=== PATIENT | male | born 1990 | race Caucasian/White ===

== ENCOUNTER → 2017-02-08 08:20 | Emergency (ER) | payer SELFPAY ==
[~2017-02-08 08:20] MED LIST: NS 0.9% 1000 ML* 1,000 ML IV ONE; NS 0.9% 1000 ML* 2,000 ML IV ONE; Ondansetron INJ* 2 MG/ML VIAL IV ONE; Pantoprazole IV* 40 MG IV ONE
[2017-02-08 08:25] VITALS: BP 188/107
[2017-02-08 11:05] LABS: Hematocrit 50 % (42-52); Mean Corpuscular HGB Conc 34 g/dl (31-36); Mean Corpuscular Hemoglobin 31 pg (27-31); Mean Corpuscular Volume 91 fL (80-94); Mean Platelet Volume 9 um3 (7.4-10.4); Red Blood Count 5.52 10^6/ul (4.0-5.4); Red Cell Distribution Width 13 % (10.5-15)
[2017-02-08 11:35] LABS: ALT 21 U/L (7-52); AST 23 U/L (13-39); Albumin 4.7 g/dL (3.2-5.2); Alkaline Phosphatase 60 U/L (34-104); Anion Gap 12 mmol/L (2-11); Blood Urea Nitrogen 15 mg/dL (6-24); C Reactive Protein < 1.00 mg/L (< 5.00); CO2 Carbon Dioxide 25 mmol/L (22-32); Calcium 9.6 mg/dL (8.6-10.3); Chloride 99 mmol/L (101-111); EGFR African American 116.2 (>60); EGFR Non-African American 90.3 (>60); Glucose 119 mg/dL (70-100); Lipase 32 U/L (11.0-82.0); Potassium 3.8 mmol/L (3.5-5.0); Sodium 136 mmol/L (133-145); Total Protein 7.7 g/dL (6.4-8.9)
--- NOTE | 2017-02-08 15:46 | ED ---
Piper Gee Edward, scribed for Frank Marshall MD on 02/08/17 at 1042 . Abdominal Pain/Male - HPI Summary HPI Summary: 26 y/o male presents to ED c/o ABD discomfort for a few days. Patient has been vomiting for the past couple of days. There was a little blood in the vomit, loss of appetite due to ABD pain, a little blood in the stool, diarrhea, lightheadedness, dizziness, HODGE, fever and chills (last night). Patient states he feels dehydrated. Denies CP and SOB. No PMHx ulcers, gallbladder disease. No FHx ulcers and Crohn's disease. Patient was recently in [facility] and got out a few weeks ago, but there was no ABD discomfort in [facility]. Patient states recent stress in life. EtOH use. Smoker. No drug use. NKDA. - History of Current Complaint Chief Complaint: EDAbdPain Stated Complaint: VOMITING BLOOD Time Seen by Provider: 02/08/17 10:18 Hx Obtained From: Patient Onset/Duration: Lasting Days Timing: Constant Severity Initially: Moderate Severity Currently: Moderate Pain Intensity: 7 Pain Scale Used: 0-10 Numeric Associated Signs And Symptoms: Positive: Diaphoresis, Fever, Blood in Stool, Decreased Appetite, Nausea, Vomiting - Blood in vomit, Diarrhea, Other - Lightheaded, dizzy, chills. Negative: Chest Pain - Allergies/Home Medications Allergies/Adverse Reactions: Allergies Allergy/AdvReac Type Severity Reaction Status Date / Time No Known Allergies Allergy Verified 02/24/16 14:00 PMH/Surg Hx/FS Hx/Imm Hx Previously Healthy: No Endocrine/Hematology History: Denies: Hx Diabetes, Hx Thyroid Disease Cardiovascular History: Denies: Hx Hypertension Respiratory History: Reports: Hx Asthma - as a child Denies: Hx Chronic Obstructive Pulmonary Disease (COPD) GI History: Denies: Hx Gall Bladder Disease, Hx Ulcer Infectious Disease History: No Infectious Disease History: Denies: Hx Clostridium Difficile, Hx Hepatitis, Hx Human Immunodeficiency Virus (HIV), Hx of Known/Suspected MRSA, Hx Shingles, Hx Tuberculosis, Hx Known/ Suspected VRE, Hx Known/Suspected VRSA, History Other Infectious Disease, Traveled Outside the [place] in Last 30 Days - Family History Known Family History: Positive: Other - No history of ulcers, gall bladder disease or Crohn's disease - Social History Alcohol Use: None Alcohol Amount: 6 pack a day and 6 shots a day Substance Use Type: Reports: None Smoking Status (MU): Heavy Every Day Tobacco Smoker Type: Cigarettes Amount Used/How Often: 1 PPD Length of Time of Smoking/Using Tobacco: 7-8 years. Review of Systems Positive: Fever, Chills, Skin Diaphoresis Eyes: Negative ENT: Negative Cardiovascular: Negative Negative: Chest Pain Respiratory: Negative Negative: Shortness Of Breath Positive: Vomiting - Blood in vomit, Diarrhea - Blood in stool, Nausea Genitourinary: Negative Musculoskeletal: Negative Skin: Negative Neurological: Other - Lightheaded and dizzy Psychological: Normal All Other Systems Reviewed And Are Negative: Yes Physical Exam - Summary Physical Exam Summary: The patient is well-nourished in no acute distress and in no acute pain. The skin is warm and skin color reflects adequate perfusion. The patient is diaphoretic. HEENT: The head is normocephalic and atraumatic. The pupils are equal and reactive. The conjunctivae are clear and without drainage. Nares are patent and without drainage. Mouth reveals moist mucous membranes and the throat is without erythema and exudate. The external ears are intact. The ear canals are patent and without drainage. The tympanic membranes are intact. Neck is supple with full range of motion and non-tender. There are no carotid bruits. There is no neck vein distension. Respiratory: Chest is non-tender. Lungs are clear to auscultation and breath sounds are symmetrical and equal. Cardiovascular: Hear is regular rate and rhythm. There is no murmur or rub auscultated. There is no peripheral edema and pulses are symmetrical and equal. Abdomen: The abdomen is soft and non-tender. There is no pain in the epigastric region, RUQ, and RLQ. There are normal bowel sounds heard in all four quadrants and there is no organomegaly palpated. Musculoskeletal: There is no back pain noted. Extremities are non-tender with full range of motion. There is good capillary refill. There is no peripheral edema or calf tenderness elicited. Neurological: Patient is alert and oriented to person, place and time. The patient has symmetrical motor strength in all four extremities. Cranial nerves are grossly intact. Deep tendon reflexes are symmetrical and equal in all four extremities. Psychiatric: The patient has an appropriate affect and does not exhibit any anxiety or depression. Triage Information Reviewed: Yes Vital Signs On Initial Exam: Initial Vitals Temp Pulse Resp BP Pulse Ox 98.1 F 109 20 188/107 98 02/08/17 08:22 02/08/17 08:22 02/08/17 08:22 02/08/17 08:22 02/08/17 08:22 Vital Signs Reviewed: Yes - [place] Coma Scale Coma Scale Total: 15 Diagnostics - Vital Signs Vital Signs Temp Pulse Resp BP Pulse Ox 02/08/17 08:24 98.1 F 106 20 188/107 99 02/08/17 08:22 98.1 F 109 20 188/107 98 - Laboratory Lab Results: Lab Results 02/08/17 02/08/17 02/08/17 Range/Units 10:50 10:50 10:50 WBC 11.0 H (3.5-10.8) 10^3/ul RBC 5.52 H (4.0-5.4) 10^6/ul Hgb 17.0 (14.0-18.0) g/dl Hct 50 (42-52) % MCV 91 (80-94) fL MCH 31 (27-31) pg MCHC 34 (31-36) g/dl RDW 13 (10.5-15) % Plt Count 180 (150-450) 10^3/ul MPV 9 (7.4-10.4) um3 Neut % (Auto) 72.3 (38-83) % Lymph % (Auto) 19.4 L (25-47) % Divide % (Auto) 6.8 (1-9) % Eos % (Auto) 0.5 (0-6) % Baso % (Auto) 1.0 (0-2) % Absolute Neuts (auto) 7.9 H (1.5-7.7) 10^3/ul Absolute Lymphs (auto) 2.1 (1.0-4.8) 10^3/ul Absolute Monos (auto) 0.8 (0-0.8) 10^3/ul Absolute Eos (auto) 0.1 (0-0.6) 10^3/ul Absolute Basos (auto) 0.1 (0-0.2) 10^3/ul Absolute Nucleated RBC 0.03 10^3/ul Nucleated RBC % 0.3 Sodium 136 (133-145) mmol/L Potassium 3.8 (3.5-5.0) mmol/L Chloride 99 L (101-111) mmol/L Carbon Dioxide 25 (22-32) mmol/L Anion Gap 12 H (2-11) mmol/L BUN 15 (6-24) mg/dL Creatinine 1.00 (0.67-1.17) mg/dL Est GFR ( Amer) 116.2 (>60) Est GFR (Non-Af Amer) 90.3 (>60) BUN/Creatinine Ratio 15.0 (8-20) Glucose 119 H (70-100) mg/dL Lactic Acid 1.5 (0.5-2.0) mmol/L Calcium 9.6 (8.6-10.3) mg/dL Total Bilirubin 1.90 H (0.2-1.0) mg/dL AST 23 (13-39) U/L ALT 21 (7-52) U/L Alkaline Phosphatase 60 (34-104) U/L C-Reactive Protein < 1.00 (< 5.00) mg/L Total Protein 7.7 (6.4-8.9) g/dL Albumin 4.7 (3.2-5.2) g/dL Globulin 3.0 (2-4) g/dL Albumin/Globulin Ratio 1.6 (1-3) Lipase 32 (11.0-82.0) U/L Result Diagrams: 02/08/17 10:50 02/08/17 10:50 Lab Statement: Any lab studies that have been ordered have been reviewed, and results considered in the medical decision making process. Re-Evaluation - Re-Evaluation 13:25 Re-Evaluation Time: 13:25 Change: Improved - Reviewed labs with patient. Patient is now tolerating liquids , with no more vomiting Abdominal Pain Fem Course/Dx - Course Assessment/Plan: 26 y/o male presents to ED c/o ABD discomfort for a few days. Patient has been vomiting for the past couple of days. On reeval @ 13:25, patient feels better - is tolerating liquids and has no more vomiting. I also reviewed labs with the patient on reeval. Patient will be discharged with Dehydration and Gastritis with f/u with PCP in 2-3 days. Patient will be given Prilosec and Zofran. Pt is agreeable with this plan. - Diagnoses Differential Diagnosis/HQI/PQRI: Bowel Obstruction, Pancreatitis, Peptic Ulcer Disease, Other - gastritis, dehydration Provider Diagnoses: Dehydration, Gastritis Discharge - Discharge Plan Condition: Stable Disposition: HOME Prescriptions: Omeprazole CAP* [Prilosec CAP* 20 MG] 20 mg PO DAILY #30 cap.dr Ondansetron ODT TAB* [Zofran 4 MG Odt TAB*] 4 mg PO Q8H PRN #10 tab.odt PRN Reason: nausea Patient Education Materials: Dehydration (ED), Gastritis (ED) Referrals: Jan CHAND,Gerber Arias [Primary Care Provider] - 3 Days (F/U in 2-3 days) The documentation as recorded by the Piper finn Edward accurately reflects the service I personally performed and the decisions made by , Frank Marshall MD.
== END | disposition home or self-care (01) ==
LOC: ED 08:20
DX: R50.9 Fever, unspecified (principal); R11.2 Nausea with vomiting, unspecified; R19.7 Diarrhea, unspecified; R42 Dizziness and giddiness; F17.210 Nicotine dependence, cigarettes, uncomplicated
CPT/HCPCS: 36415; 80053; 83605; 83690; 85025; 86140; 96374; 96375; 99283; J2405

== ENCOUNTER 2017-09-17 03:57 | Emergency (ER) | payer MEDICAID ==
[2017-09-17] MEDS ORDERED: cloNIDine TAB* 0.1 MG PO ONE (04:25)
[2017-09-17] MEDS ORDERED: ALPRAZolam TAB* 0.5 MG PO ONE (04:26)
[2017-09-17] MEDS ORDERED: cloNIDine TAB* 0.1 MG ONE ×2 (04:34)
--- NOTE | 2017-09-17 05:34 | ED ---
Jessee Gee Thomas, scribed for Raulito Brown MD on 09/17/17 at 0438 . Psychiatric Complaint - HPI Summary HPI Summary: The patient is a 33 year old male presenting to the emergency department after he had an anxiety attack earlier today. He was discharged yesterday from an inpatient alcohol detox center. He last consumed alcohol six days ago. He is hypertensive and anxious. He will begin outpatient therapy later today, and he suspects he will be inpatient in the next few days. - History Of Current Complaint Chief Complaint: EDGeneral Time Seen by Provider: 09/17/17 04:12 Hx Obtained From: Patient Onset/Duration: Still Present Timing: Constant Severity Currently: Moderate Character: Anxious Aggravating Factor(s): Other - Recent discharge from detox center Alleviating Factor(s): Nothing Related History: Positive For: Drug Abuse Counseling Has Suicidal: Denies: Thoughts Has Homicidal: Denies: Thoughts - Allergies/Home Medications Allergies/Adverse Reactions: Allergies Allergy/AdvReac Type Severity Reaction Status Date / Time No Known Allergies Allergy Verified 02/24/16 14:00 PMH/Surg Hx/FS Hx/Imm Hx Endocrine/Hematology History: Denies: Hx Diabetes, Hx Thyroid Disease Cardiovascular History: Denies: Hx Hypertension Respiratory History: Reports: Hx Asthma - as a child Denies: Hx Chronic Obstructive Pulmonary Disease (COPD) GI History: Denies: Hx Gall Bladder Disease, Hx Ulcer Infectious Disease History: No Infectious Disease History: Denies: Hx Clostridium Difficile, Hx Hepatitis, Hx Human Immunodeficiency Virus (HIV), Hx of Known/Suspected MRSA, Hx Shingles, Hx Tuberculosis, Hx Known/ Suspected VRE, Hx Known/Suspected VRSA, History Other Infectious Disease, Traveled Outside the [place] in Last 30 Days - Family History Known Family History: Positive: Other - No history of ulcers, gall bladder disease or Crohn's disease - Social History Alcohol Use: None Alcohol Amount: 6 pack a day and 6 shots a day Substance Use Type: Reports: None Smoking Status (MU): Heavy Every Day Tobacco Smoker Type: Cigarettes Amount Used/How Often: 1 PPD Length of Time of Smoking/Using Tobacco: 7-8 years. Review of Systems Negative: Fever Positive: Anxious All Other Systems Reviewed And Are Negative: Yes Physical Exam - Summary Physical Exam Summary: VITAL SIGNS: Reviewed. GENERAL: Patient is a well-developed and nourished MALE who is lying comfortable in the stretcher. Patient is not in any acute respiratory distress. HEAD AND FACE: No signs of trauma. No ecchymosis, hematomas or skull depressions. No sinus tenderness. EYES: PERRLA, EOMI x 2, No injected conjunctiva, no nystagmus. EARS: Hearing grossly intact. Ear canals and tympanic membranes are within normal limits. MOUTH: Oropharynx within normal limits. NECK: Supple, trachea is midline, no adenopathy, no JVD, no carotid bruit, no c- spine tenderness, neck with full ROM. CHEST: Symmetric, no tenderness at palpation LUNGS: Clear to auscultation bilaterally. No wheezing or crackles. CVS: Regular rate and rhythm, S1 and S2 present, no murmurs or gallops appreciated. ABDOMEN: Soft, non-tender. No signs of distention. No rebound no guarding, and no masses palpated. Bowel sounds are normal. EXTREMITIES: FROM in all major joints, no edema, no cyanosis or clubbing. NEURO: Alert and oriented x 3. No acute neurological deficits. Speech is normal and follows commands. SKIN: Dry and warm Triage Information Reviewed: Yes Vital Signs On Initial Exam: Initial Vitals Temp Pulse Resp BP Pulse Ox 96.8 F 123 20 198/129 100 09/17/17 03:58 09/17/17 03:58 09/17/17 03:58 09/17/17 03:58 09/17/17 03:58 Vital Signs Reviewed: Yes Diagnostics - Vital Signs Vital Signs Temp Pulse Resp BP Pulse Ox 09/17/17 04:36 16 09/17/17 03:58 96.8 F 123 20 198/129 100 - Laboratory Lab Statement: Any lab studies that have been ordered have been reviewed, and results considered in the medical decision making process. Re-Evaluation - Re-Evaluation First Eval Re-Evaluation Time: 05:30 Change: Improved Comment: He feels better and his blood pressure is down. Course/Dx - Course Assessment/Plan: The patient is a 33 year old male presenting to the emergency department after he had an anxiety attack earlier today. He was discharged yesterday from an inpatient alcohol detox center. He last consumed alcohol six days ago. He is hypertensive and anxious. In the ED course, the patient was given Xanax and Clonidine. On re-evaluation at 05:30, the patient feels better and his blood pressure is down. He will be discharged home with prescriptions for Xanax and Clonidine. He will follow up with primary care. - Differential Dx/Clinical Impression Provider Diagnosis: Anxiety, Alcohol withdrawal, HTN (hypertension) Discharge - Discharge Plan Condition: Stable Disposition: HOME Prescriptions: ALPRAZolam TAB* [Xanax TAB*] 0.5 mg PO BID PRN #20 tab MDD 2 PRN Reason: Anxiety cloNIDine TAB* [Catapres 0.1 MG TAB*] 0.1 mg PO BID #30 tab Patient Education Materials: Anxiety (ED), Alcohol Withdrawal (ED), Hypertension (ED) Referrals: Jna CHAND,Gerber Arias [Primary Care Provider] - 3 Days Additional Instructions: Follow up with your primary care physician in three days. Return to the emergency department for any new or worsening symptoms. The documentation as recorded by the Jessee finn Thomas accurately reflects the service I personally performed and the decisions made by me, Raulito Brown MD.
[2017-09-17 05:39] VITALS: BP 136/100
== END 2017-09-17 05:40 | disposition home or self-care (01) ==
LOC: ED 03:57
DX: F41.9 Anxiety disorder, unspecified (principal); F10.239 Alcohol dependence with withdrawal, unspecified; I10 Essential (primary) hypertension; F17.210 Nicotine dependence, cigarettes, uncomplicated
CPT/HCPCS: 99282; A9270-GY